=== PATIENT | male | born 1975 | race Caucasian/White ===

== ENCOUNTER 2023-05-08 06:42 | Day surgery (SDC) | payer BC ==
[2023-04-30 15:56] VITALS: BMI 33.3
[2023-04-30 16:55] LABS: Hematocrit 56.6 % (38.8-50.0); Hemoglobin 19.7 g/dL (13.5-17.5); Mean Corpuscular HGB CONC 34.8 g/dL (32.0-36.0); Mean Corpuscular Hemoglobin 30.8 pg (27.0-33.0); Mean Corpuscular Volume 88.6 fl (81.2-95.1); Mean Platelet Volume 9.1 fl (7.4-10.4); Platelet Count 321 10x3/uL (150-450); RBC Distribution Width 12.2 % (11.5-14.5); Red Blood Cell (RBC) Count 6.39 10x6/uL (4.32-5.72); White Blood Cell (WBC) Count 14.2 10x3/uL (3.5-10.5)
[2023-04-30 17:05] LABS: INR-International Normal Ratio 1.1; Prothrombin Time 11.8 sec (9.5-12.1)
[2023-05-08 07:21] LABS: #Basophils 0.1 thou/uL (0.0-0.2); #Eosinphils 0.5 thou/uL (0.0-0.7); #Monocytes 0.7 thou/uL (0.11-0.59); #Neutrophils 3.2 thou/uL (1.40-6.50); %Basophils 1.6 % (0.0-1.0); %Eosinophils 7.1 % (0.0-10.0); %Lymphocytes 36.4 % (21.0-51.0); %Monocytes 9.2 % (0.0-10.0); %Neutrophils 45.4 % (42.0-75.0); Hematocrit 54.4 % (42.0-52.0); Hemoglobin 18.5 g/dL (14.0-18.0); Mean Corpuscular Hemoglobin 30.3 pg (27.0-31.0); Mean Platelet Volume 8.7 fL (7.4-10.4); Platelet Count 291 10x3/uL (130-400); RBC Distribution Width 12.4 % (11.5-14.5); Red Blood Cell (RBC) Count 6.11 mill/uL (4.70-6.10); White Blood Cell (WBC) Count 7.1 10x3/uL (4.8-10.8)
[2023-05-08 08:02] LABS: Anion Gap 15 mmol/L (10-20); BUN (Urea Nitrogen) 18 mg/dL (8.9-20.6); Calc. Creatinine Clearance 127 mL/min (70-130); Calcium 9.6 mg/dL (7.8-10.44); Carbon Dioxide 22 mmol/L (22-29); Chloride 108 mmol/L (98-107); Estimated GFR 75; Glucose 109 mg/dL (70-105); Sodium 141 mmol/L (136-145)
[2023-05-08] MEDS ORDERED: Protamine Sulfate 50 MG/5 ML VIAL ONE (08:08)
[2023-05-08] MEDS ORDERED: Heparin 25,000 units/D5W 500 ML ONE (08:08)
[2023-05-08] MEDS ORDERED: Heparin 10,000 UNITS/ 10 ML VIAL ONE (08:08)
[2023-05-08] MEDS ORDERED: SUGAMMADEX SODIUM 200 MG/2 ML VIAL ONE (09:03)
[2023-05-08] MEDS ORDERED: Midazolam HCl 2 mg/2 ml Vial ONE ×2 (09:03→11:29)
[2023-05-08] MEDS ORDERED: Fentanyl 250 MCG/5 ML VIAL ONE (09:03)
[2023-05-08] MEDS ORDERED: PHENYLEPHRINE-NS 100 MCG/ML 10 ML SYRINGE ONE (09:29)
[2023-05-08] MEDS ORDERED: Rocuronium Bromide 10 MG/ML (10ML VIAL) ONE (09:29)
[2023-05-08] MEDS ORDERED: PROPOFOL 200 MG/20 ML VIAL ONE (09:29)
[2023-05-08] MEDS ORDERED: Promethazine HCl 25 MG/ML VIAL IM PRN (10:44)
[2023-05-08] MEDS ORDERED: Ondansetron HCl/PF 4 MG/2 ML Vial IVP PRN (10:44)
[2023-05-08] MEDS ORDERED: HYDROmorphone 2 MG/ML VIAL SLOW IVP PRN (10:44)
[2023-05-08] MEDS ORDERED: Dexmedetomidine 200 MCG/2 ML VIAL ONE (11:29)
== END 2023-05-08 15:51 | disposition home or self-care (01) ==
LOC: SDC 06:42
PROVIDERS: ATTEND Internal Medicine Cardiovascular Disease
PROC: 02B70ZK Excision of Left Atrial Appendage, Open Approach (ICD-10-PCS; principal; 2023-05-08)
PROC: 02583ZZ Destruction of Conduction Mechanism, Percutaneous Approach (ICD-10-PCS; principal; 2023-05-08)
PROC: 02K83ZZ Map Conduction Mechanism, Percutaneous Approach (ICD-10-PCS; principal; 2023-05-08)
DX: I48.0 Paroxysmal atrial fibrillation (principal); I48.3 Typical atrial flutter; I50.22 Chronic systolic (congestive) heart failure; F90.9 Attention-deficit hyperactivity disorder, unspecified type; R57.0 Cardiogenic shock; I44.7 Left bundle-branch block, unspecified; G47.33 Obstructive sleep apnea (adult) (pediatric); E03.9 Hypothyroidism, unspecified; Z96.652 Presence of left artificial knee joint; Z79.899 Other long term (current) drug therapy; Z92.89 Personal history of other medical treatment; Z79.01 Long term (current) use of anticoagulants
CPT/HCPCS: 80048; 85025; 85027; 85347; 85610; 93005; 93312; 93656; C1732; C1760; C1894; C2630; J1644; J2250; J2704; J2720; J3010